=== PATIENT | male | born 1955 | race Caucasian/White ===

== ENCOUNTER 2018-02-09 18:16 | Emergency (ER) | payer BC ==
[~2018-02-09] VITALS: Ht 175.3 cm; Wt 71.4 kg
[~2018-02-09 18:16] MED LIST: BAYER ASPIRIN325 MG PO; BAYER CHEWABLE81 MG PO; COREG 3.1253.125 MG NG; COZAAR100 MG PO; FERRETTS I40 MG/15 M PO; ISOSORBIDE MONO30 M1 PO; LIPITOR20 MG PO; NORVASC10 MG PO; PERCOCET 10/3251 TA1 PO; PLAVIX75 MG PO; PRILOSEC20 MG PO; VITAMIN D31000 UNI2 PO
[2018-02-09 18:20] VITALS: Ht 175.3 cm; Wt 71.4 kg
[2018-02-09 19:52] LABS: BASOPHILS 0.1 % (0-2); EOSINOPHILS 0.5 % (0-7); HEMATOCRIT 38.2 % (42.0-54.0); HEMOGLOBIN 13.9 g/dL (13.5-17.5); IMMATURE GRANULOCYTES 0.3 % (0-5); LYMPHOCYTES 19.6 % (15-50); MCHC 36.4 g/dL (31.0-37.0); MCV 82.3 fL (80.0-100.0); MEAN PLATELET VOLUME 10.6 fL (7.4-10.4); MONOCYTES 7.4 % (2-11); NEUTROPHILS 72.1 % (40-80); RBC 4.64 10x6/uL (4.20-6.10); RDW 13.7 % (11.5-14.5); WBC 11.2 10x3/uL (4.8-10.8)
[2018-02-09 20:01] LABS: ANION GAP 16.3 mmol/L (8-16); CALCIUM 8.8 mg/dL (8.5-10.1); CARBON DIOXIDE 26.1 mmol/L (21.0-32.0); CREATININE - SERUM 1.2 mg/dL (0.6-1.3); POTASSIUM - SERUM 3.4 mmol/L (3.5-5.1)
[2018-02-09 20:11] LABS: PLATELET COUNT 175 10x3/uL (130-400)
[2018-02-09] MEDS ORDERED: NORCO 10-325 TA1 TAB PO (21:26)
[2018-02-09 22:30] VITALS: BP 189/98
== END 2018-02-09 22:30 | disposition home or self-care (01) ==
LOC: D.ER 18:16
PROVIDERS: Family Medicine
DX: S20.211A Contusion of right front wall of thorax, initial encounter (principal); W18.09XA Striking against other object with subsequent fall, initial encounter; Y93.89 Activity, other specified; Y92.89 Other specified places as the place of occurrence of the external cause; Z86.73 Personal history of transient ischemic attack (TIA), and cerebral infarction without residual deficits; I10 Essential (primary) hypertension; I25.10 Atherosclerotic heart disease of native coronary artery without angina pectoris; J44.9 Chronic obstructive pulmonary disease, unspecified; F17.200 Nicotine dependence, unspecified, uncomplicated

== ENCOUNTER 2019-03-05 19:16 | Inpatient (IN) | payer BC ==
[~2019-03-05] VITALS: Ht 175.3 cm; Wt 72.0 kg
[~2019-03-05 19:16] MED LIST changes: +NORCO 10-325 TA1 TAB PO
[2019-03-05] MEDS ORDERED: ASPIRIN81 MG PO (19:23)
[2019-03-05 20:10] LABS: BASOPHILS 0.2 % (0-2); EOSINOPHILS 0.9 % (0-7); HEMATOCRIT 38.3 % (42.0-54.0); HEMOGLOBIN 13.7 g/dL (13.5-17.5); IMMATURE GRANULOCYTES 0.2 % (0-5); LYMPHOCYTES 34.4 % (15-50); MCH 29.6 pg (26.0-34.0); MCHC 35.8 g/dL (31.0-37.0); MCV 82.7 fL (80.0-100.0); MEAN PLATELET VOLUME 10.7 fL (7.4-10.4); MONOCYTES 8.6 % (2-11); NEUTROPHILS 55.7 % (40-80); PLATELET COUNT 159 10x3/uL (130-400); RBC 4.63 10x6/uL (4.20-6.10); RDW 14.3 % (11.5-14.5); WBC 8.5 10x3/uL (4.8-10.8)
[2019-03-05 20:17] LABS: INR 1.04 (0.85-1.17); PROTIME 13.1 SECONDS (11.6-15.0)
[2019-03-05 20:49] LABS: CALC OSMOLALITY 292 mosm/kg (275-300); CARBON DIOXIDE 23.3 mmol/L (21.0-32.0); CHLORIDE - SERUM 106 mmol/L (98-107); CREATININE - SERUM 1.4 mg/dL (0.6-1.3); GLUCOSE 133 mg/dL (74-106); POTASSIUM - SERUM 3.7 mmol/L (3.5-5.1); SODIUM 145 mmol/L (136-145); UREA NITROGEN 19 mg/dL (7-18); eGFR NON AFRICAN AMERICAN 54 mL/min (90-120)
[2019-03-05 21:02] VITALS: BP 166/104
[2019-03-05 21:15] LABS: ALBUMIN 3.8 g/dL (3.4-5.0); ALKALINE PHOSPHATASE 54 U/L (46-116); ALT (SGPT) 22 U/L (10-68); BILIRUBIN - TOTAL 0.47 mg/dL (0.2-1.3); CREATINE KINASE 299 UL (21-232); PROTEIN - SERUM 6.9 g/dL (6.4-8.2); TROPONIN-I < 0.017 ng/mL (0.000-0.060)
[2019-03-05 21:17] LABS: CKMB 4.8 U/L (0.0-3.6)
[2019-03-05 22:00] LABS: APPEARANCE CLEAR (CLEAR); BILIRUBIN NEGATIVE (NEGATIVE); COLOR YELLOW (YELLOW); GLUCOSE 250 mg/dL (NEGATIVE); KETONE NEGATIVE (NEGATIVE); NITRITE NEGATIVE (NEGATIVE); PROTEIN TRACE mg/dL (NEGATIVE); UROBILINOGEN NORMAL (NORMAL)
--- NOTE | 2019-03-05 22:05 | NUR ---
PT UPDATED ON PLAN OF CARE. EDP SILVIA AT BEDSIDE. WILL CONTINUE TO MONITOR.
[2019-03-05 22:30] LABS: AMYLASE - SERUM 56 U/L (25-115); LIPASE 82 U/L (73-393)
[2019-03-05 22:35] VITALS: BP 187/123
--- NOTE | 2019-03-05 23:00 | NUR ---
PT COLOR WNL AT THIS TIME AND SKIN IS WARM AND DRY . PT CHEEKS ARE PINK. NO DISTRESS NOTED. WILL CONT TO MONITOR.
[2019-03-05 23:01] VITALS: BP 147/91
--- NOTE | 2019-03-05 23:25 | NUR ---
ADVISED EDP SILVIA THAT PT IS HAVING HEAD PAIN. OK TO GIVE DOSE OF 4MG MORPHINE/4MG ZOFRAN PER FLOOR PRN ORDER
[2019-03-06] VITALS (7 sets, daily range): BP systolic 125–194; BP diastolic 68–104; Ht 175.3 cm; Wt 72.0 kg
--- NOTE | 2019-03-06 00:04 | NUR ---
RECIEVED REPORT AND CHECKED ORDERS TELE WILL BE ON HOLD PER NON AVAILABLE FOR NON CP PTS
--- NOTE | 2019-03-06 00:09 | NUR ---
PT HAD EPISODE OF VOMITING. ADVISED EDP. VOMIT APPEARS YELLOW WITH UNDIGESTED FOOD. NO BRIGHT RED BLEEDING OBSERVED.
--- NOTE | 2019-03-06 00:15 | NUR ---
ADMITED FROM ER VIA WC TO ROOM 4 BED LOW AND LOCKED AND CALL LIGHT PROVIDED EFFORTS MADE FOR COMFORT AND FOR NEEDS
--- NOTE | 2019-03-06 00:28 | NUR ---
PT REFUSES SCD FOR NOW
[2019-03-06 05:05] LABS: BASOPHILS 0.1 % (0-2); EOSINOPHILS 0.2 % (0-7); HEMATOCRIT 38.7 % (42.0-54.0); HEMOGLOBIN 13.8 g/dL (13.5-17.5); IMMATURE GRANULOCYTES 0.3 % (0-5); LYMPHOCYTES 19.5 % (15-50); MCH 29.2 pg (26.0-34.0); MCHC 35.7 g/dL (31.0-37.0); MEAN PLATELET VOLUME 11.1 fL (7.4-10.4); MONOCYTES 8.7 % (2-11); NEUTROPHILS 71.2 % (40-80); PLATELET COUNT 186 10x3/uL (130-400); RBC 4.72 10x6/uL (4.20-6.10); RDW 14.1 % (11.5-14.5); WBC 9.5 10x3/uL (4.8-10.8)
[2019-03-06 05:13] LABS: CALCIUM 8.7 mg/dL (8.5-10.1); CARBON DIOXIDE 26.8 mmol/L (21.0-32.0); CREATININE - SERUM 1.3 mg/dL (0.6-1.3); POTASSIUM - SERUM 3.8 mmol/L (3.5-5.1)
--- NOTE | 2019-03-06 07:48 | NUR ---
PT LAYING DOWN. RR EVEN AND UNLABORED ON RA. DENIES NEEDS OR PAIN AT THIS TIME. BED IN LOWEST POSITION. CALL LIGHT WITHIN REACH. WILL CONTINUE TO MONITOR.
[2019-03-06 10:09] LABS: % SATURATION 29 % (15-55); IRON 78 ug/dl (35-150); TOTAL IRON BIND CAPACITY 264 ug/dl (260-445); UNSAT IRON BIND CAPACITY 186 ug/dl (150-375)
[2019-03-06 10:34] LABS: MAGNESIUM - SERUM 1.9 mg/dL (1.8-2.4)
--- NOTE | 2019-03-06 13:21 | NUR ---
PT LEFT OFR PROCEDURE VIA BED. FAMILY @ BEDSIDE
--- NOTE | 2019-03-06 17:46 | NUR ---
I have reviewed this patient and I concur with the Shift Assessment completed by the Licensed Practical Nurse today this shift.
--- NOTE | 2019-03-06 19:20 | NUR ---
PTM IS AT REST WITH EYES CLOSED IS PRESENT WITH PT RESP EVEN AND UNLABORED BED IS LOW AND LOCKED WILL ALLOW TO REST AT THIS TIME
--- NOTE | 2019-03-06 23:22 | NUR ---
NOTED AGAIN ORDERS FOR TELEMETRY BUT THERE ARE NONE ACVAILABLE
[2019-03-07 00:25] VITALS: BP 169/93
[2019-03-07 04:27] VITALS: BP 165/94
--- NOTE | 2019-03-07 05:42 | NUR ---
FOUND IV INFILTRATED AND REMOVED CATH INTACT PT WANTED TO WAIT TILL AFTER SHOWER TO RESTART IV
--- NOTE | 2019-03-07 06:28 | NUR ---
RESTARTED IV WITH 20 TO LEFT FA
[2019-03-07 06:52] LABS: BASOPHILS 0.1 % (0-2); EOSINOPHILS 0.7 % (0-7); IMMATURE GRANULOCYTES 0.2 % (0-5); LYMPHOCYTES 32.1 % (15-50); MCHC 35.1 g/dL (31.0-37.0); MCV 82.6 fL (80.0-100.0); MEAN PLATELET VOLUME 10.6 fL (7.4-10.4); MONOCYTES 9.5 % (2-11); NEUTROPHILS 57.4 % (40-80); PLATELET COUNT 162 10x3/uL (130-400); RBC 4.48 10x6/uL (4.20-6.10); RDW 14.2 % (11.5-14.5); WBC 10.6 10x3/uL (4.8-10.8)
[2019-03-07 07:02] LABS: ANION GAP 15.6 mmol/L (8-16); CALCIUM 8.8 mg/dL (8.5-10.1); CARBON DIOXIDE 26.3 mmol/L (21.0-32.0); CREATININE - SERUM 1.5 mg/dL (0.6-1.3); POTASSIUM - SERUM 3.9 mmol/L (3.5-5.1)
--- NOTE | 2019-03-07 07:15 | NUR ---
REPORT RECIEVED AND PATIENT CARE ASSUMED. PATIENT LAYING IN BEDE AWAKIE, ALERT AND ORIENTED X 4. PATIENT DENIES ANY NEEDS OR PAIN. PATIENT IS STABLE AND VSS. WILL CONTINUE WITH PLAN OF CARE. SR UP X 2 BED IN LOW POSITION AND CALL LIGHT IN REACH.
--- NOTE | 2019-03-07 09:07 | NUR ---
REPORTED TO THIS NURSE FROM TEXTILE CLOTHING AND FOOTWEAR MECHANIC. BP 167/111. PER APR ORDERS MEDICATED PATIENT WITH CATAPRES 0.1 MG PO.
--- NOTE | 2019-03-07 10:15 | NUR ---
PRESCHOOL ASSISTANT PRINCIPAL REPORTED BP147/98. PATIENT DENIES ANY ANY PAIN OR NEEDS . WILL CONTINUE TO MONITOR. SR UP X 2 BED IN LOW POSITION AND CALL LIGHT IN REACH.
--- NOTE | 2019-03-07 10:44 | NUR ---
PATIENT IS STABLE AND VSS. PATIENT DENIES ANY NEEDS OR PAIN. PATIENT VISITNG WITH FAMILY AND FRIENDS. WILL CONTINUE TO MONITOR. SR UP X 2 BED IN LOW POSITION AND CALL LIGHT IN REACH.
[2019-03-07 11:01] VITALS: BP 195/111
--- NOTE | 2019-03-07 12:09 | NUR ---
COMMUNICABLE DISEASE SPECIALIST REPORTS BP 172/111 RA AND LA 176/109. CALLED STACY HERNANDEZ REPORTED RESULTS. MEW ORDER RECEIVED.
--- NOTE | 2019-03-07 13:30 | NUR ---
BP RE CHECK RA 187/116 LL 170/113. PAGED STACY HERNANDEZ . RECIEVED NEW ORDER TO DC IV FLUIDS. IV FLUIDS DCD.
[2019-03-07] MEDS ORDERED: CARAFATE1 G PO (15:20)
[2019-03-07] MEDS ORDERED: PROTONIX40 MG PO (15:21)
[2019-03-07] MEDS ORDERED: NORVASC5 MG PO (15:22)
--- NOTE | 2019-03-07 15:36 | NUR ---
PATIENT TO REFUSE FLU SHOT FOR DISCHARGE.
--- NOTE | 2019-03-07 15:53 | MORECARE ---
CASE MANAGEMENT DISCHARGE SUMMARY PATIENT: ANU PIERCE [facility] UNIT: [id number] ADM DATE: 03/05/19 AGE: 63 : 53 SEX: M ROOM/BED: D.2104 AUTHOR: URSULA MENDOSA PHYSICIAN: REFERRING PHYSICIAN: ELVIRA WHITE MD DATE OF SERVICE: 03/07/19 Discharge Plan Patient Name: ANU PIERCE Facility: [facility]:[place] : 1955 Planned Disposition: Home or Self Care Anticipated Discharge Date: 03/07/19 Discharge Date: Expected LOS: 2 Initial Reviewer: [email or web address] Initial Review Date: 03/07/2019 Generated: 03/07/19 4:52 pm Comments DCP- Discharge Planning Updated by [email or web address]: Cristal Nolen on 03/07/19 2:[address] Patient Name: ANU PIERCE Admission Status: ER Accout number: [id number] Admission Date: 03-05-2019 : 1955 Admission Diagnosis: Attending: ELVIRA WHITE Current LOS: 2 Anticipated DC Date: 03-07-2019 Planned Disposition: Home or Self Care Primary Insurance: [employer] [facility] Discharge Planning Comments: CM MET WITH PATIENT AND FAMILY AFTER OBTAINING VERBAL CONSENT. STATES PLANS TO DC TO HOME TODAY WITH FIANCE. DENIES NEEDS FOR HH, REHAB OR EQUIPMENT. CM TO FOLLOW AND ASSIST. Checking Department Supervisor: Cristal Nolen DCPIA - Discharge Planning Initial Assessment Updated by [email or web address]: Cristal Nolen on 03/07/19 3:47 pm * Is the patient Alert and Oriented? Yes * PCP AVA * Pharmacy [facility] [address] * Preadmission Environment Home with Family * ADLs Independent * Other Equipment CANE * List name and contact numbers for known caregivers / representatives who currently or will assist patient after discharge: ANDREIA [phone] * Please name any agencies selected above. NONE * Additional services required to return to the preadmission environment? No * Can the patient safely return to the preadmission environment? Yes * Has this patient been hospitalized within the prior 30 days at any hospital? No Patient Name: ANU PIERCE Page [id number] at 1553 All edits/amendments must be made on the electronic document DICTATION DATE: 03/07/191552 CUTTER WOODWIND REEDS: MARY 03/07/191552 RPT#: [id number] DC DATE: STATUS: ADM IN [facility] [address] [place] [address] END OF REPORT
--- NOTE | 2019-03-08 18:18 | MORECARE ---
CASE MANAGEMENT DISCHARGE SUMMARY PATIENT: ANU PIERCE [facility] UNIT: [id number] ADM DATE: 03/05/19 AGE: 63 : 53 SEX: M ROOM/BED: D.2104 AUTHOR: URSULA MENDOSA PHYSICIAN: REFERRING PHYSICIAN: ELVIRA WHITE MD DATE OF SERVICE: 03/08/19 Discharge Plan Patient Name: ANU PIERCE Facility: [facility]:[place] : 1955 Planned Disposition: Home or Self Care Anticipated Discharge Date: 03/07/19 Discharge Date: 03/07/2019 Expected LOS: 2 Initial Reviewer: [email or web address] Initial Review Date: 03/07/2019 Generated: 03/08/19 7:17 pm Comments DCP- Discharge Planning Updated by [email or web address]: Cristal Nolen on 03/07/19 2:[address] Patient Name: ANU PIERCE Admission Status: ER Accout number: [id number] Admission Date: 03-05-2019 : 1955 Admission Diagnosis: Attending: ELVIRA WHITE Current LOS: 2 Anticipated DC Date: 03-07-2019 Planned Disposition: Home or Self Care Primary Insurance: [employer] [facility] Discharge Planning Comments: CM MET WITH PATIENT AND FAMILY AFTER OBTAINING VERBAL CONSENT. STATES PLANS TO DC TO HOME TODAY WITH FIANCE. DENIES NEEDS FOR HH, REHAB OR EQUIPMENT. CM TO FOLLOW AND ASSIST. Scraper Loader Operator: Cristal Nolen DCPIA - Discharge Planning Initial Assessment Updated by [email or web address]: Cristal Nolen on 03/07/19 3:47 pm * Is the patient Alert and Oriented? Yes * PCP AVA * Pharmacy [facility] [address] * Preadmission Environment Home with Family * ADLs Independent * Other Equipment CANE * List name and contact numbers for known caregivers / representatives who currently or will assist patient after discharge: ANDREIA [phone] * Please name any agencies selected above. NONE * Additional services required to return to the preadmission environment? No * Can the patient safely return to the preadmission environment? Yes * Has this patient been hospitalized within the prior 30 days at any hospital? No Last DP export: 03/07/19 2:53 pm Patient Name: PIERCE, ANU Page [phone] at 1818 All edits/amendments must be made on the electronic document DICTATION DATE: 03/08/191816 CORPORATE RELATIONS MANAGER: MARY 03/08/191816 RPT#: [id number] DC DATE:03/07/19 STATUS: DIS IN [facility] [address] [place] [address] END OF REPORT
== END 2019-03-07 16:39 | disposition home or self-care (01) | DRG 391 ==
LOC: D.ER 19:16 → D.M2 23:43
PROVIDERS: Family Medicine; Internal Medicine Gastroenterology; ADMIT Emergency Medicine; ATTEND Emergency Medicine
PROC: 0DB68ZX Excision of Stomach, Via Natural or Artificial Opening Endoscopic, Diagnostic (ICD-10-PCS; principal; 2019-03-06 12:57)
DX: K21.0 Gastro-esophageal reflux disease with esophagitis (principal); K29.71 Gastritis, unspecified, with bleeding; N17.9 Acute kidney failure, unspecified; F17.213 Nicotine dependence, cigarettes, with withdrawal; M19.90 Unspecified osteoarthritis, unspecified site; D64.9 Anemia, unspecified; I10 Essential (primary) hypertension

== ENCOUNTER → 2020-07-22 09:41 | Outpatient (CLI) | payer OTHER, MEDICARE ==
[2019-04-10 06:38] VITALS: BMI 24.7
[~2020-07-22 09:41] MED LIST changes: +ASPIRIN81 MG PO; +CARAFATE1 G PO; +CARDURA2 MG PO; +CATAPRES0.2 MG PO; +NORVASC5 MG PO; +PROTONIX40 MG PO
== END | disposition home or self-care (01) ==
LOC: D.HCCECHO 09:41
PROVIDERS: ATTEND Internal Medicine Cardiovascular Disease
DX: R06.00 Dyspnea, unspecified (principal)